=== PATIENT | female | born 1980 | race Caucasian/White ===

== ENCOUNTER 2016-03-30 11:55 | Emergency (ER) | payer BC ==
[~2016-03-30] VITALS: Ht 165.1 cm; Wt 62.9 kg
[~2016-03-30 11:55] MED LIST: SERT100T PO
[2016-03-30 12:00] VITALS: TEMP 36.8; Ht 165.1 cm; Wt 62.9 kg
[2016-03-30] MEDS ORDERED: [UNRECOGNIZED DRUG - CODE] PO (12:18)
[2016-03-30] MEDS ORDERED: IBUPROFEN 600 MG TAB PO STA (13:05)
--- NOTE | 2016-03-30 14:40 | DIAGNOSTIC IMAGING REPORT ---
NECK ULTRASOUND HISTORY: left sided facial/neck swelling COMPARISON: Cervical spine CT 02/14/2015. FINDINGS: Along the inferior aspect of the left parotid gland there are 2 intraparotid lymph nodes with the largest measuring 8 x 5 x 4 mm. There is also a single intraparotid lymph node on the right measuring 8 x 5 x 3 mm. No additional fluid collections or masses identified. IMPRESSION: Nearly symmetric small bilateral intraparotid lymph nodes. No additional fluid collections or masses identified within the neck. Electronically signed by: Jv Gilliland M.D. 03/30/2016 2:38 PM Dictated Date/Time: 03/30/2016 2:35 PM
[2016-03-30] MEDS ORDERED: AMOX875T PO (14:46)
--- NOTE | 2016-03-30 14:47 | EMERGENCY ROOM VISIT NOTE ---
History First contact with patient: 12:16 Chief Complaint: ILLNESS Stated Complaint: BLANDS BELOW LT EAR SWELLING, FEELING TIRED/SICK History of Present Illness The patient is a 36 year old female who presents to the Emergency Room with complaints of swelling in the glands of the left side of her face. The patient states that this began a few days ago. She states that she has some pain in the left side of her face in front of her ear. She states it feels slightly swollen and it is painful to touch. She rates her discomfort a 3/10. The patient denies any recent illness, fevers or chills. She denies sore throat, earache, difficulty swallowing or cough. She reports she has had problems with swollen lymph nodes as a child. Review of Systems A complete 10-point Review of Systems was discussed with the patient, with pertinent positives and negatives listed in the History of Present Illness. All remaining Review of Systems questions can be considered negative unless otherwise specified. Past Medical/Surgical History Medical Problems: (1) Acute back pain (2) Acute bronchitis (3) Acute bronchitis (4) ANXIETY STATE NOS (5) Back contusion (6) CERVICALGIA (7) Chest pain (8) Chest pain (9) Chronic low back pain (10) DEPRESSIVE DISORDER NEC (11) Spasm of back muscles (12) TOBACCO USE DISORDER (13) Vaginal hysterectomy Surgical Problems: (1) Cholecystectomy (2) History of - hysterectomy (3) Postoperative state (4) S/P cervical spinal fusion (5) S/P cervical spinal fusion Family History Cancer Diabetes mellitus Gallbladder disease Social History Smoking Status: Current Every Day Smoker Alcohol Use: occasionally Drug Use: none Marital Status: Housing Status: lives with family Occupation Status: employed Current/Historical Medications Scheduled Amoxicillin & Pot Clavulanate (Augmentin 875-125 mg), 1 TAB PO BID Atomoxetine HCl (Strattera), 100 MG PO QAM Sertraline Hcl (Zoloft), 1.5 TAB PO DAILY Allergies Coded Allergies: No Known Allergies (Verified , 03/30/16) Physical Exam Vital Signs Date Time Temp Pulse Resp B/P Pulse Ox O2 Delivery O2 Flow Rate FiO2 03/30/16 14:53 78 16 123/77 98 03/30/16 14:00 88 20 136/78 96 03/30/16 12:00 36.8 97 18 128/86 97 Room Air Physical Exam VITALS: Vitals are noted on the nurse's note and reviewed by myself. Vital signs stable. GENERAL: This is a 36-year-old female, in no acute distress, nondiaphoretic, well-developed well-nourished. SKIN: Capillary reflex less than 2 seconds. HEENT: Normocephalic. PERRLA. EOMI. Nares patent. Mucous membranes moist. Questionable minimal left-sided facial swelling. NECK: Supple, no nuchal rigidity. No cervical lymphadenopathy. HEART: Regular rate and rhythm without murmurs gallops or rubs. LUNGS: Clear to auscultation bilaterally without wheezes, rales or rhonchi. NEURO: Patient was alert and oriented to person place and time. Medical Decision & Procedures ER Provider Diagnostic Interpretation: NECK ULTRASOUND HISTORY: left sided facial/neck swelling COMPARISON: Cervical spine CT 02/14/2015. FINDINGS: Along the inferior aspect of the left parotid gland there are 2 intraparotid lymph nodes with the largest measuring 8 x 5 x 4 mm. There is also a single intraparotid lymph node on the right measuring 8 x 5 x 3 mm. No additional fluid collections or masses identified. IMPRESSION: Nearly symmetric small bilateral intraparotid lymph nodes. No additional fluid collections or masses identified within the neck. Medications Administered Medications (Trade) Dose Ordered Sig/Wendy Route Start Time Stop Time Status Last Admin Dose Admin Ibuprofen (Motrin Tab) 600 mg NOW STAT PO 03/30/16 13:05 03/30/16 13:06 DC 03/30/16 13:12 600 MG Medical Decision Differential diagnosis includes lymphadenopathy, parotitis, abscess, among others. The patient was evaluated as above. Imaging studies were performed and read by radiology as above. The patient is a 36-year-old female who presents today complaining of left sided neck swelling. Ultrasound did not show any significant lymphadenopathy, abscess, or any other infectious findings. The patient will be placed on Augmentin to cover for any bacterial cause of her pain and swelling. She will follow up with her primary care provider as needed. She verbalized understanding of my assessment and treatment plan. Based on the patient's presentation, lab results, and imaging studies, I feel the patient is stable for outpatient treatment. Discharge instructions were reviewed with the patient. The patient verbalized understanding of my assessment and treatment plan and was discharged home in good condition. Impression Primary Impression: Lymphadenopathy of head and neck Departure Information Dispostion Home / Self-Care Condition GOOD Prescriptions Amoxicillin & Pot Clavulanate (Augmentin 875-125 mg) 1 Tab Tab 1 TAB PO BID for 7 Days, #14 TAB Prov: Leia Lunsford .JERALD 03/30/16 Referrals Leo Fields PA-C (PCP) Patient Instructions My [facility] Additional Instructions You were prescribed Augmentin to be taken twice daily as prescribed. This is an antibiotic. All antibiotics have the potential to cause diarrhea. Stop this medication and contact a medical provider if you were to develop any significant adverse side effects including: wheezing, shortness of breath, passing out, vomiting, or a diffuse rash. Always take antibiotics as directed and COMPLETE the ENTIRE course regardless of the improvement of your symptoms. For pain control, you can use the following [id number] medicines (if >12 yo): - Regular strength (325mg/tab) Tylenol (acetaminophen) 2 tabs every 4-6 hours as needed. Do not exceed 12 tablets in a 24 hour period. Avoid taking more than 4 grams (4000 mg) of Tylenol per day. This includes any other sources of acetaminophen you may take on a regular basis. - Regular strength (200 mg/tab) Advil (ibuprofen) 1-2 tabs every 4-6 hours as needed. Do not exceed a dose of 3200 mg per day. Follow-up with your primary care provider within one week. Return to the emergency department with any worsening symptoms or new/ concerning symptoms.
[2016-03-30 14:53] VITALS: BP 123/77; PULSE 78; O2SAT 98
== END 2016-03-30 14:54 | disposition home or self-care (01) ==
LOC: C.EDB 11:58 → C.EDD 14:54
DX: R59.1 Generalized enlarged lymph nodes (principal); F32.9 Major depressive disorder, single episode, unspecified; F17.200 Nicotine dependence, unspecified, uncomplicated; Z90.49 Acquired absence of other specified parts of digestive tract; Z90.710 Acquired absence of both cervix and uterus; Z79.899 Other long term (current) drug therapy; Z80.9 Family history of malignant neoplasm, unspecified; Z83.3 Family history of diabetes mellitus

== ENCOUNTER 2016-04-10 23:48 | Emergency (ER) | payer BC ==
[~2016-04-10] VITALS: Ht 165.1 cm; Wt 63.1 kg
[~2016-04-10 23:48] MED LIST changes: +[UNRECOGNIZED DRUG - CODE] PO
[2016-04-10 23:53] VITALS: TEMP 36.9; Ht 165.1 cm; Wt 63.1 kg
[2016-04-11] MEDS ORDERED: ONDANSETRON INJ 2 MG/ML 2 ML VIAL IV STA (00:14)
[2016-04-11] MEDS ORDERED: MoRPHine SULFATE 4 MG/ML 1 ML CARP\\VIAL IV STA ×2 (00:14→01:09)
[2016-04-11] MEDS ORDERED: SODIUM CHLORIDE 0.9% 1000ML 1,000 ML IV STA (00:14)
[2016-04-11] MEDS ORDERED: KETOROLAC TROMETHAMINE 30 MG/ML VIAL IV STA (00:14)
--- NOTE | 2016-04-11 00:26 | EMERGENCY ROOM VISIT NOTE ---
History Report prepared by Farhat: Manish Morocho Under the Supervision of: Dr. Silvia Wallace D.O. First contact with patient: 00:01 Chief Complaint: FLANK PAIN Stated Complaint: LEFT SIDED ABDOMINAL PAIN History of Present Illness The patient is a 36 year old female who presents to the Emergency Room with complaints of constant sharp left flank pain starting suddenly around 2100. The patient additionally complains of nausea. The patient states that she has never had a kidney or stone or a UTI. She states that she has a history of fecal incontinence, urinary incontinence, and she has been impacted which she is seeing a doctor for. She sates that she was having UTI symptoms yesterday. The patient states that she takes Zoloft for anxiety. She additionally has ADHD and acid reflux. The patient denies any family history of kidney stones. She states that she has had a vaginal hysterectomy and a cholecystectomy and neck surgery to fuse some vertebrae. Source of History: patient Onset: 2100 Position: other (flank) Quality: sharp Timing: constant Associated Symptoms: + nausea Review of Systems See HPI for pertinent positives & negatives. A total of 10 systems reviewed and were otherwise negative. Past Medical & Surgical Medical Problems: (1) Acute back pain (2) Acute bronchitis (3) Acute bronchitis (4) ANXIETY STATE NOS (5) Back contusion (6) CERVICALGIA (7) Chest pain (8) Chest pain (9) Chronic low back pain (10) DEPRESSIVE DISORDER NEC (11) Spasm of back muscles (12) TOBACCO USE DISORDER (13) Vaginal hysterectomy Surgical Problems: (1) Cholecystectomy (2) History of - hysterectomy (3) Postoperative state (4) S/P cervical spinal fusion (5) S/P cervical spinal fusion Family History Cancer Diabetes mellitus Gallbladder disease Social History Smoking Status: Never Smoker Alcohol Use: occasionally Drug Use: none Marital Status: Housing Status: lives with family Occupation Status: employed Current/Historical Medications Scheduled Atomoxetine HCl (Strattera), 100 MG PO QAM Omeprazole (Prilosec), 40 MG PO DAILY Sertraline (Zoloft), 100 MG PO DAILY Sulfamethoxazole-Trimethoprim (Bactrim Ds 800MG/160MG), 1 TAB PO BID Scheduled PRN Clonazepam (Klonopin), 0.5 MG PO DAILY PRN for Anxiety Allergies Coded Allergies: No Known Allergies (Verified , 04/11/16) Physical Exam Vital Signs Date Time Temp Pulse Resp B/P Pulse Ox O2 Delivery O2 Flow Rate FiO2 04/11/16 03:00 68 16 108/70 99 Room Air 04/11/16 02:07 86 16 111/72 98 Room Air 04/10/16 23:53 36.9 126 20 137/95 98 Room Air Physical Exam General: Crying in pain. HEENT: Head - normocephalic and atraumatic Pupils are equal, round, and reactive to light. Extraocular eye muscles are intact, and sclera are anicteric. Nose - moist nasal mucosa without discharge. Mouth - moist buccal mucosa. Oropharynx is nonerythematous and there is no tonsillar exudate or edema noted. Neck: Supple; no JVD, nuchal rigidity, cervical lymphadenopathy. Heart: Tachycardic rate and normal rhythm. There is a normal S1 and S2 with no murmurs, clicks, or gallops appreciated. Lungs: Clear to auscultation bilaterally with no wheezes, rales, or rhonchi. Abdomen: Diffuse abdominal pain. Guarding diffusely. Mostly concentrated in the epigastrium and left flank. Soft, nondistended, with hypoactive sounds. There are no palpable pulsatile masses or hepatosplenomegaly. There is no guarding, rigidity, or rebound noted. Extremities: No evidence of cyanosis, clubbing, or edema. There are easily palpable peripheral pulses. Skin: warm and dry with good turgor and no rashes. Medical Decision & Procedures ER Provider Diagnostic Interpretation: X-ray results as stated below per interpretation by me. Other radiology results as stated below per my review and the radiologist's interpretation: CT ABDOMEN & PELVIS: Mild fullness of the left collecting system with left periureteral fat stranding. No obstructing calculus. Differential considerations include recently passed calculus versus infection. 4.3 cm left adnexal cyst with attenuation greater than simple fluid. Ultrasound could be used for further evaluation if symptoms localize to this region. Otherwise, recommend 6- 12 week follow-up ultrasound. Uterus is surgically absent. Gallbladder is surgically absent. Liver, pancreas, spleen, and adrenals are unremarkable on noncontrast exam. No free air. No free fluid. Apparent wall thickening of the descending colon is likely due to under distention. Appendix is normal. Radiologist: Jerry Maurice MD Obstruction Series: No free air. No signs of bowel obstruction. Normal bowel gas pattern Laboratory Results 04/11/16 00:27 Red Blood Count 3.75, Mean Corpuscular Volume 98.1, Mean Corpuscular Hemoglobin 34.4, Mean Corpuscular Hemoglobin Concent 35.1, Mean Platelet Volume 10.8, Neutrophils (%) (Auto) 73.3, Lymphocytes (%) (Auto) 18.8, Monocytes (%) (Auto) 7.2, Eosinophils (%) (Auto) 0.4, Basophils (%) (Auto) 0.2, Neutrophils # (Auto) 7.90, Lymphocytes # (Auto) 2.02, Monocytes # (Auto) 0.78, Eosinophils # (Auto) 0.04, Basophils # (Auto) 0.02 04/11/16 00:27 Test 04/11/16 00:27 White Blood Count 10.77 K/uL (4.8-10.8) Red Blood Count 3.75 M/uL (4.2-5.4) Hemoglobin 12.9 g/dL (12.0-16.0) Hematocrit 36.8 % (37-47) Mean Corpuscular Volume 98.1 fL (80-100) Mean Corpuscular Hemoglobin 34.4 pg (25-34) Mean Corpuscular Hemoglobin Concent 35.1 g/dl (32-36) Platelet Count 220 K/uL (130-400) Mean Platelet Volume 10.8 fL (7.4-10.4) Neutrophils (%) (Auto) 73.3 % Lymphocytes (%) (Auto) 18.8 % Monocytes (%) (Auto) 7.2 % Eosinophils (%) (Auto) 0.4 % Basophils (%) (Auto) 0.2 % Neutrophils # (Auto) 7.90 K/uL (1.4-6.5) Lymphocytes # (Auto) 2.02 K/uL (1.2-3.4) Monocytes # (Auto) 0.78 K/uL (0.11-0.59) Eosinophils # (Auto) 0.04 K/uL (0-0.5) Basophils # (Auto) 0.02 K/uL (0-0.2) RDW Standard Deviation 47.1 fL (36.4-46.3) RDW Coefficient of Variation 13.1 % (11.5-14.5) Immature Granulocyte % (Auto) 0.1 % Immature Granulocyte # (Auto) 0.01 K/uL (0.00-0.02) Urine Color YELLOW Urine Appearance CLOUDY (CLEAR) Urine pH 6.0 (4.5-7.5) Urine Specific [place] 1.006 (1.000-1.030) Urine Protein 1+ (NEG) Urine Glucose (UA) NEG (NEG) Urine Ketones NEG (NEG) Urine Occult Blood 3+ (NEG) Urine Nitrite NEG (NEG) Urine Bilirubin NEG (NEG) Urine Urobilinogen NEG (NEG) Urine Leukocyte Esterase LARGE (NEG) Urine WBC (Auto) >30 /hpf (0-5) Urine RBC (Auto) 10-30 /hpf (0-4) Urine Hyaline Casts (Auto) 1-5 /lpf (0-5) Urine Epithelial Cells (Auto) 5-10 /lpf (0-5) Urine Bacteria (Auto) NEG (NEG) Anion Gap 11.0 mmol/L (3-11) Est Creatinine Clear Calc Drug Dose 102.4 ml/min Estimated GFR () 129.2 Estimated GFR (Non- 111.5 BUN/Creatinine Ratio 18.8 (10-20) Calcium Level 8.2 mg/dl (8.5-10.1) Total Bilirubin 0.2 mg/dl (0.2-1) Direct Bilirubin < 0.1 mg/dl (0-0.2) Aspartate Amino Transf (AST/SGOT) 11 U/L (15-37) Alanine Aminotransferase (ALT/SGPT) 17 U/L (12-78) Alkaline Phosphatase 86 U/L (45-117) Total Protein 6.9 gm/dl (6.4-8.2) Albumin 3.4 gm/dl (3.4-5.0) Lipase 152 U/L (73-393) Laboratory results per my review. Medications Administered Medications (Trade) Dose Ordered Sig/Wendy Route Start Time Stop Time Status Last Admin Dose Admin Sodium Chloride (Nss 1000ml) 1,000 ml @ 250 mls/hr Q4H STAT IV 04/11/16 00:14 04/11/16 04:13 04/11/16 00:24 250 MLS/HR Ondansetron HCl (Zofran Inj) 4 mg NOW STAT IV 04/11/16 00:14 2/1/17 00:15 DC 04/11/16 00:25 4 MG Ketorolac Tromethamine (Toradol Inj) 30 mg NOW STAT IV 04/11/16 00:14 04/11/16 00:15 DC 04/11/16 00:25 30 MG Morphine Sulfate (MoRPHine SULFATE INJ) 4 mg NOW STAT IV 04/11/16 00:14 04/11/16 00:15 DC 04/11/16 00:25 4 MG Morphine Sulfate (MoRPHine SULFATE INJ) 4 mg NOW STAT IV 04/11/16 01:09 04/11/16 01:11 DC 04/11/16 01:14 4 MG Trimethoprim/ Sulfamethoxazole (Septra Ds 800/ 160MG Tab) 1 tab NOW STAT PO 04/11/16 02:38 04/11/16 02:39 DC 04/11/16 02:44 1 TAB Oxycodone/ Acetaminophen (Percocet 5/ 325MG Home Pack) 1 homepack UD ONCE PO 04/11/16 03:15 04/11/16 03:16 DC 04/11/16 03:18 1 HOMEPACK Procedure Morphine Sulfate X2, Toradol, Zofran, Sodium Chloride, Septa Ds 800/160mg ED Course 0001: Past medical records reviewed. The patient was evaluated in room B4. A complete history and physical exam was performed. An IV lock was initiated and labs are drawn as above. 0014: Morphine Sulfate 4mg IV, Toradol Inj 40mg IV, Zofran Inj 4mg IV, Sodium Chloride 1000 ml @ 250 mls/hr IV. 0109: The patient's returned from radiology and was continuing to complain of pain. 0110: I reevaluated the patient, and she states that she feels significantly better with medication, but the pain is starting to come back. She was given additional IV Morphine Sulfate Inj. she will go for CT scan of the abdomen/ pelvis. 0230: Upon reevaluation, is still slightly uncomfortable. I discussed findings and results with her. She verbalized agreement of the treatment plan. She was discharged home. 0238: Septa Ds 800/160mg 1 tab PO 0315: Percocet 5/325mg 1 Home Pack PO Medical Decision The patient is a 36 year old female who presents to the ED with flank pain. Differential diagnosis includes perforate small bowel, small bowel obstruction, cystitis, diverticulitis, pancreatitis, gastritis, and kidney stone. No leukocytosis, stable H&H, normal renal function and glucose, normal LFTs and lipase. UA shows cloudy urine, 1+ protein, 3+ blood, greater than 30 white blood cells, 10-30 red blood cells, large leukocyte esterase, negative bacteria and nitrate This is a 28-year-old female patient who presents to the emergency department with sudden onset of left flank pain. The patient describes having some urinary symptoms yesterday. On physical exam tonight, she has diffuse abdominal pain with palpation. Obstruction series showed no evidence of small bowel obstruction or free air. Urinalysis had significant blood and signs that were concerning for infection. The urine will be sent for culture. She went for CT scan of the abdomen/pelvis as described above. The patient may have recently passed a stone. Her clinical presentation was suggestive of ureteral colic. However, the patient had urinary symptoms yesterday and a questionably infected urine. We will start her on Bactrim until cultures are resulted. The patient was told to return to the emergency department if she developed worsening pain, fever, or vomiting. I explained to the patient that she has a 4.3 cm left adnexal cyst noted on CT scan. She will require ultrasound follow-up through her operator helper. Impression Primary Impression: Left flank pain Scribe Attestation The scribe's documentation has been prepared under my direction and personally reviewed by me in its entirety. I confirm that the note above accurately reflects all work, treatment, procedures, and medical decision making performed by me. Departure Information Dispostion Home / Self-Care Prescriptions Sulfamethoxazole-Trimethoprim (Bactrim Ds 800MG/160MG) 1 Tab Tab 1 TAB PO BID, #20 TAB Prov: Silvia Wallace D.O. 04/11/16 Referrals Leo Fields PA-C (PCP) Forms HOME CARE DOCUMENTATION FORM, IMPORTANT VISIT INFORMATION Patient Instructions ED Flank Pain Uncertain Cause, My [facility], UTI Additional Instructions Rest. Take bactrim - 1 tab. every 12 hours percocet - 1-2 tabs. every 6 hours Follow up with gynecology for further evaluation of cyst. Return to the ER if symptoms worsen - increased pain, vomiting or fever.
[2016-04-11 00:42] LABS: BASO % 0.2 %; BASO ABS # 0.02 K/uL (0-0.2); COMPLETE YES; EOS % 0.4 %; HEMATOCRIT 36.8 % (37-47); IG% 0.1 %; LYMPH % 18.8 %; LYMPH ABS # 2.02 K/uL (1.2-3.4); MEAN CELL VOLUME 98.1 fL (80-100); MEAN CORPUSCULAR HEMOGLOBIN 34.4 pg (25-34); MEAN CORPUSCULAR HGB CONC 35.1 g/dl (32-36); MEAN PLATELET VOLUME 10.8 fL (7.4-10.4); MONO % 7.2 %; NEUT % 73.3 %; PLATELET COUNT 220 K/uL (130-400); RED BLOOD COUNT 3.75 M/uL (4.2-5.4); WHITE BLOOD COUNT 10.77 K/uL (4.8-10.8)
[2016-04-11] MEDS ORDERED: SERT-234 PO (00:44)
[2016-04-11] MEDS ORDERED: CLON0.5T3 PO (00:45)
[2016-04-11 00:46] LABS: URINE APPEARANCE CLOUDY (CLEAR); URINE BILIRUBIN NEG (NEG); URINE COLOR YELLOW; URINE NITRITE NEG (NEG); URINE SPECIFIC GRAVITY 1.006 (1.000-1.030); UROBILINOGEN NEG (NEG)
[2016-04-11] MEDS ORDERED: PRLSR20 PO (00:46)
[2016-04-11 00:47] LABS: MANUAL MICROSCOPIC REQUIRED? NO; REVIEW REQ? NO
[2016-04-11 01:02] LABS: ALT/SGPT 17 U/L (12-78); BLOOD UREA NITROGEN 13 mg/dl (7-18); BUN/CREATININE RATIO 18.8 (10-20); CALCIUM 8.2 mg/dl (8.5-10.1); CARBON DIOXIDE 22 mmol/L (21-32); CHLORIDE 105 mmol/L (98-107); CREATININE 0.67 mg/dl (0.60-1.20); GLUCOSE 92 mg/dl (70-99); POTASSIUM 3.4 mmol/L (3.5-5.1); SODIUM 138 mmol/L (136-145)
[2016-04-11 01:05] LABS: ALKALINE PHOSPHATASE 86 U/L (45-117); AST/SGOT 11 U/L (15-37)
[2016-04-11] MEDS ORDERED: SULFAMETHOXAZOLE/TRIMETHOPRIM DS 800/160MG TAB PO STA (02:38)
[2016-04-11] MEDS ORDERED: SULF800T23 PO (02:42)
[2016-04-11 03:00] VITALS: BP 108/70; PULSE 68; O2SAT 99
[2016-04-11] MEDS ORDERED: PERCOCET HOME PACK PO ONE (03:15)
--- NOTE | 2016-04-11 06:10 | DIAGNOSTIC IMAGING REPORT ---
ABDOMEN 2VIEW W/PA CHEST RTN CLINICAL HISTORY: eval for free air or sob pain COMPARISON STUDY: 02/14/2016 FINDINGS: The soft tissues, psoas shadows, renal outlines and intestinal gas pattern appear normal. There is no evidence for bowel obstruction. There is no evidence for free intraperitoneal air. No abnormal abdominal calcifications are seen. A frontal view of the chest was performed and is unremarkable. IMPRESSION: Normal study. Electronically signed by: Francisco Bertrand M.D. 04/11/2016 6:09 AM Dictated Date/Time: 04/11/2016 6:08 AM
--- NOTE | 2016-04-11 06:36 | DIAGNOSTIC IMAGING REPORT ---
ABDOMEN AND PELVIS CT WITHOUT CONTRAST CT DOSE: 466.31 mGy.cm HISTORY: Flank pain eval for left sided stone TECHNIQUE: Multiaxial CT images of the abdomen and pelvis were performed without the use of intravenous and oral contrast according to the standard department stone protocol. COMPARISON STUDY: None. FINDINGS: Lung bases are clear. Lung bases again are clear. Prior cholecystectomy. Liver spleen and pancreas are unremarkable. Mild fullness left renal collecting system compared to the right. No evidence for asaf hydronephrosis. Slight fullness left ureter compared to the right. Several pelvic vascular calcifications. No well-defined obstructing calculus. Nonobstructive bowel pattern. Slightly hyperdense 4 cm left ovarian cyst. IMPRESSION: 1. No evidence for an obstructing urinary tract calculus. 2. Mild left hydroureteronephrosis most consistent statistically with a recently passed calculus. 3. 4 cm left ovarian cyst. 4. A 2 cm right ovarian cyst. 5. Nonobstructive bowel pattern. Electronically signed by: Francisco Bertrand M.D. 04/11/2016 6:35 AM Dictated Date/Time: 04/11/2016 6:29 AM
--- NOTE | 2016-04-13 14:57 | Pharmacy Progress Note ---
ED Pharmacist Culture FollowUp Date of Service: Apr 13, 2016. Patient was sent home with a prescription for Bactrim DS 1 tab PO BID x 10 days , which should cover the E coli growing from the patient's URINE culture. No action required.
== END 2016-04-11 03:20 | disposition home or self-care (01) ==
LOC: C.EDB 23:49
DX: R10.30 Lower abdominal pain, unspecified (principal); F32.9 Major depressive disorder, single episode, unspecified; F41.9 Anxiety disorder, unspecified; G89.29 Other chronic pain; F17.200 Nicotine dependence, unspecified, uncomplicated; Z79.899 Other long term (current) drug therapy; Z90.710 Acquired absence of both cervix and uterus; Z90.49 Acquired absence of other specified parts of digestive tract; Z98.1 Arthrodesis status; Z80.9 Family history of malignant neoplasm, unspecified; Z83.3 Family history of diabetes mellitus; Z83.79 Family history of other diseases of the digestive system

== ENCOUNTER 2016-04-26 12:24 | Inpatient (IN) | payer BC ==
[~2016-04-26] VITALS: Ht 165.1 cm; Wt 64.4 kg
[~2016-04-26 12:24] MED LIST changes: +CLON0.5T3 PO; +PRLSR20 PO; +SERT-234 PO; -SERT100T PO
[2016-04-26 12:27] VITALS: Ht 165.1 cm; Wt 64.4 kg
[2016-04-26] MEDS ORDERED: SODIUM CHLORIDE 0.9% 1000ML 1,000 ML IV STA (12:55)
[2016-04-26] MEDS ORDERED: ONDANSETRON INJ 2 MG/ML 2 ML VIAL IV STA (12:55)
[2016-04-26] MEDS ORDERED: MoRPHine SULFATE 4 MG/ML 1 ML CARP\\VIAL IV STA ×2 (12:55→15:07)
[2016-04-26 13:08] LABS: BASO % 0.2 %; BASO ABS # 0.02 K/uL (0-0.2); COMPLETE YES; EOS % 0.2 %; IG% 0.2 %; LYMPH ABS # 0.79 K/uL (1.2-3.4); MEAN CELL VOLUME 99.7 fL (80-100); MEAN CORPUSCULAR HEMOGLOBIN 35.2 pg (25-34); MEAN CORPUSCULAR HGB CONC 35.3 g/dl (32-36); MEAN PLATELET VOLUME 10.8 fL (7.4-10.4); NEUT % 85.4 %; PLATELET COUNT 211 K/uL (130-400); RED BLOOD COUNT 3.61 M/uL (4.2-5.4); WHITE BLOOD COUNT 11.33 K/uL (4.8-10.8)
[2016-04-26 13:23] LABS: URINE APPEARANCE CLEAR (CLEAR); URINE BILIRUBIN NEG (NEG); URINE COLOR YELLOW; URINE NITRITE POS (NEG); URINE PH 5.5 (4.5-7.5); URINE SPECIFIC GRAVITY 1.014 (1.000-1.030); UROBILINOGEN NEG (NEG); ZZUR CULT IF INDIC CLEAN CATCH YES
[2016-04-26 13:24] LABS: MANUAL MICROSCOPIC REQUIRED? NO; REVIEW REQ? NO
[2016-04-26 13:26] LABS: BUN/CREATININE RATIO 10.5 (10-20); CALCIUM 8.2 mg/dl (8.5-10.1); CREATININE 0.63 mg/dl (0.60-1.20); POTASSIUM 3.8 mmol/L (3.5-5.1)
[2016-04-26] MEDS ORDERED: CLONAZEPAM 0.5 MG TAB PO STA (13:59)
[2016-04-26] MEDS ORDERED: CEFTRIAXONE SOD INJ 1 GM ADDVIAL IV STA (14:20)
--- NOTE | 2016-04-26 14:50 | DIAGNOSTIC IMAGING REPORT ---
ULTRASOUND KIDNEYS AND BLADDER CLINICAL HISTORY: Left flank pain. COMPARISON STUDY: Abdominal CT dated 04/11/16. TECHNIQUE: Real-time, grayscale, and color flow sonography of the kidneys and bladder is performed. Images are reviewed in the transverse and longitudinal planes. FINDINGS: Kidneys: The kidneys are normal in size and echotexture. The right kidney measures 9.5 x 4.6 x 4.4 cm and the left kidney measures 11.1 x 6.2 x 5.7 cm. There is no hydronephrosis. No shadowing renal calculi are identified. There is no sonographic evidence of contour deforming renal mass lesion. No perinephric fluid is identified. Bladder: The bladder is normal in appearance. Bilateral ureteral jets were seen. Pelvis: A complex and presumably hemorrhagic left ovarian cyst is again noted. This measures at least 6 cm. IMPRESSION: 1. The kidneys are normal in size and without hydronephrosis. 2. The bladder is normal in appearance. Both ureteral jets were seen. 3. A complex and presumably hemorrhagic left ovarian cyst is again noted. Electronically signed by: Luke Romeo M.D. 04/26/2016 2:49 PM Dictated Date/Time: 04/26/2016 2:46 PM
--- NOTE | 2016-04-26 15:40 | DIAGNOSTIC IMAGING REPORT ---
KUB CLINICAL HISTORY: Left sided abdominal pain. FINDINGS: 2 AP supine abdominal radiographs are correlated with abdominal CT dated 04/11/16. Cholecystectomy clips are identified. There is a nonobstructed abdominal bowel gas pattern noting moderate colonic fecal retention. There is no radiographic evidence of nephrolithiasis. Small phleboliths are seen in the pelvis. No evidence of intraperitoneal free air is seen on these supine views. A naval piercing is noted. The bony structures appear intact. The lung bases are clear as imaged. IMPRESSION: Nonobstructed abdominal bowel gas pattern noting moderate colonic fecal retention. Electronically signed by: Luke Romeo M.D. 04/26/2016 3:39 PM Dictated Date/Time: 04/26/2016 3:38 PM
[2016-04-26] MEDS ORDERED: TRAMADOL HCL 50 MG TAB PO PRN (16:30)
[2016-04-26] MEDS ORDERED: MAGNESIUM HYDROXIDE SUSP 30 ML UDC PO PRN (16:30)
[2016-04-26] MEDS ORDERED: MoRPHine SULFATE 4 MG/ML 1 ML CARP\\VIAL IV PRN (16:30)
[2016-04-26] MEDS ORDERED: ACETAMINOPHEN 325 MG TAB PO PRN (16:30)
[2016-04-26] MEDS ORDERED: NSS + 20MEQ KCL 1000ML 1,000 ML IV SCH (16:30)
[2016-04-26] MEDS ORDERED: ONDANSETRON INJ 2 MG/ML 2 ML VIAL IV PRN ×2 (16:30→17:45)
[2016-04-26] MEDS ORDERED: DOCUSATE SODIUM/SENNA 50/8.6MG TAB PO ONE (16:30)
[2016-04-26] MEDS ORDERED: CLONAZEPAM 0.5 MG TAB PO PRN (16:30)
[2016-04-26] MEDS ORDERED: SODIUM CHLORIDE 0.9% 1000ML 1,000 ML IV SCH (17:37)
[2016-04-26] MEDS ORDERED: NALOXONE HCL 0.4 MG/1 ML VIAL/CARP IV PRN (17:45)
[2016-04-26] MEDS ORDERED: PANTOprazole INJ 40 MG in SYRINGE 0 ML IV ONE (18:00)
--- NOTE | 2016-04-26 18:16 | HISTORY & PHYSICAL EXAMINATION ---
DATE OF ADMISSION: 04/26/2016 ADMITTING DIAGNOSES: 1. Hemorrhagic left ovarian cyst. 2. Intractable pelvic pain. ADMISSION HISTORY: The patient is a 36-year-old 2, para 2 status post vaginal hysterectomy in 2009, who is admitted from the Emergency Room for a hemorrhagic left ovarian cyst with intractable pain. The patient has been having intermittent pelvic pain for the last 2 weeks. She was seen in the Emergency Room 2 weeks ago and had a CAT scan which showed a 4 cm adnexal process. She was discharged home on pain medications and returns today with again acute pain. Some question of CVA tenderness and there was a question of pyelonephritis. Renal ultrasound was unremarkable, but a 6 cm hemorrhagic ovarian cyst was noted on renal ultrasound. The patient is not complaining of any nausea, vomiting, but the pain has made it impossible for her to sleep. The patient had a hysterectomy 5 years ago for supposed endometriosis. She is not complaining of any fever, chills, malaise, night sweats or unexplained weight loss. The patient has a history of some type of gastrointestinal disorder with chronic diarrhea. She is followed by the doctors at [facility] for this but etiology to this is undetermined. PAST MEDICAL HISTORY: OB: x2. 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 ADMISSION PHYSICAL EXAMINATION: GENERAL: Shows a female, uncomfortable but in no acute distress. VITAL SIGNS: Show blood pressure 134/81 and pulse of 102. HEENT EXAMINATION: Unremarkable. NECK: Supple. LUNGS: Clear. HEART: With a regular rhythm and rate. ABDOMEN: Diffusely nontender with no guarding, no rebound. PELVIC: Shows normal external genitalia. Vaginal vault is pink and rugated. The cuff is intact. On bimanual examination, patient complains of diffuse abdominal tenderness. Suboptimal examination because of patient discomfort. EXTREMITIES: Shows no deep calf tenderness. NEUROLOGIC: Grossly intact. ADMISSION LABORATORY VALUES: Show an H\T\H of 12.7 and 36.0, white count of 11,000. IMPRESSION: A 36-year-old G2, P2 with intractable pelvic pain, hemorrhagic ovarian cyst. PLAN: The patient is complaining of diffuse abdominal pain and pain control is difficult. A renal ultrasound shows a 6 cm complex ovarian cyst consistent with a hemorrhagic cyst. At this point, we are going to admit the patient for pain control and make her n.p.o. We will reevaluate her in approximately 12 hours. The need for possible surgical evaluation and removal of cyst and/or ovary has been discussed. The patient agrees with this plan.
--- NOTE | 2016-04-26 19:09 | DIAGNOSTIC IMAGING REPORT ---
PELVIC ULTRASOUND, TRANSABDOMINAL AND TRANSVAGINAL HISTORY: Pain pain and cyst COMPARISON: None. FINDINGS: Uterus: Partial hysterectomy. No significant residual. Endometrial stripe: None Right ovary: 2.7 cm. Normal vascular flow. 1.5 cm cyst. Left ovary: Large cyst measuring 7 cm. Normal vascular flow Miscellaneous:No pelvic free fluid. IMPRESSION: Large left ovarian cyst. Small right ovarian cyst. Otherwise negative study status post hysterectomy Electronically signed by: Francisco Bertrand M.D. 04/26/2016 7:08 PM Dictated Date/Time: 04/26/2016 7:02 PM
[2016-04-26 19:10] VITALS: BP 128/83; PULSE 107; TEMP 37.2
--- NOTE | 2016-04-26 19:22 | Progress Note ---
Progress Note delayed entry date of service 04/26/16 patient seen with JEAN Linares at bedside resting in bed, states pain is somewhat relieved with PRN Morphine, worse with movement denies chest pain, dyspnea, palpitations no other symptoms VS noted General- adult Head- atraumatic Eyes- anicteric ENT- oropharynx clear Neck- supple, no JVD, no adenopathy Lungs- clear to auscultation b/l Heart- regular rhythm; no murmur, no gallop, no rub appreciated Abdomen- normal bowel sounds,non distended, soft, (+) exquisite tenderness on the LLQ region, (+) Left CVA tenderness Extremities- no pretibial edema, no calf tenderness; peripheral pulses intact Neuro- alert, oriented x 3; no gross deficits Skin- warm & dry Labs and Imaging reviewed a/p> LLQ PAIN POSSIBLY FROM OVARIAN CYST, UTI - admission orders placed - Ceftriaxone IV urine culture pending PRN pain medications, IV fluids - discussed with Dr. Reese upon his evaluation, as per ER staff, he requested transfer of patient to Customer Experience Retail Clerk service Neil Verma MD
[2016-04-26] MEDS: MoRPHine SULFATE 1 MG/ML 50 ML PCA CASS IV PRN ×2 (20:19→23:15)
[2016-04-26] MEDS: LACTATED RINGER'S 1000ML 1,000 ML IV SCH (20:19)
--- NOTE | 2016-04-26 21:53 | EMERGENCY ROOM VISIT NOTE ---
History First contact with patient: 12:30 Chief Complaint: ABDOMINAL PAIN Stated Complaint: ABD Nursing Triage Summary: patient to ED via ALS from home for flank/abdominal pain, states "I was here two weeks ago and was told maybe I had a cyst, and a stone, and some fecal impaction. Yesterday I was having pain again so I went to urgent care and they gave me a shot of toradol which helped a little. Today the pain got so bad I couldn't go to work. Its severe pain in my right side, belly and back." History of Present Illness The patient is a 36 year old female who presents to the Emergency Room with complaints of left-sided abdominal pain for the past 2 weeks. The patient states that she was initially seen here and had a CT scan and lab testing which showed a recently passed kidney stone. She was prescribed antibiotics and took one week worth of antibiotics. She states that her pain has not improved. She saw urgent care yesterday for her symptoms and states that they gave her a shot of an anti-inflammatory and sent her home. She states that her symptoms had initially improved somewhat, but came back more severe. The patient has a history of fecal urgency/incontinence and IBS. She denies any history of kidney stones or kidney infections. She reports some associated nausea, but denies vomiting. She denies fevers/chills, chest pain, shortness of breath or blood in her stools. She denies any abnormal vaginal bleeding or vaginal discharge. Review of Systems A complete 10-point Review of Systems was discussed with the patient, with pertinent positives and negatives listed in the History of Present Illness. All remaining Review of Systems questions can be considered negative unless otherwise specified. Past Medical/Surgical History Medical Problems: (1) Abdominal pain (2) Acute back pain (3) Acute bronchitis (4) Acute bronchitis (5) ANXIETY STATE NOS (6) Back contusion (7) CERVICALGIA (8) Chest pain (9) Chest pain (10) Chronic low back pain (11) DEPRESSIVE DISORDER NEC (12) Hemorrhagic cyst (13) Spasm of back muscles (14) TOBACCO USE DISORDER (15) Vaginal hysterectomy Surgical Problems: (1) Cholecystectomy (2) History of - hysterectomy (3) Postoperative state (4) S/P cervical spinal fusion (5) S/P cervical spinal fusion Family History Cancer Diabetes mellitus Gallbladder disease Social History Smoking Status: Never Smoker Alcohol Use: occasionally Drug Use: none Marital Status: Housing Status: lives with family Occupation Status: employed Current/Historical Medications Scheduled Atomoxetine HCl (Strattera), 100 MG PO QAM Omeprazole (Prilosec), 40 MG PO DAILY Sertraline (Zoloft), 100 MG PO DAILY Scheduled PRN Clonazepam (Klonopin), 0.5 MG PO DAILY PRN for Anxiety Allergies Coded Allergies: No Known Allergies (Verified , 04/26/16) Physical Exam Vital Signs Date Time Temp Pulse Resp B/P Pulse Ox O2 Delivery O2 Flow Rate FiO2 04/26/16 16:30 102 16 134/81 97 04/26/16 14:15 97 20 137/78 95 Room Air 04/26/16 12:39 96 04/26/16 12:33 96 Room Air 04/26/16 12:27 36.5 94 23 130/82 Room Air Pain Rating (0-10): 0 Physical Exam VITALS: Vitals are noted on the nurse's note and reviewed by myself. Vital signs stable. GENERAL: This is a 36-year-old female, in no acute distress, nondiaphoretic, well-developed well-nourished. SKIN: Capillary reflex less than 2 seconds. HEART: Regular rate and rhythm without murmurs gallops or rubs. LUNGS: Clear to auscultation bilaterally without wheezes, rales or rhonchi. ABDOMEN: Positive bowel sounds x 4. Moderate left-sided CVA tenderness. The patient has tenderness of the left lower quadrant. No guarding or rebound tenderness. NEURO: Patient was alert and oriented to person place and time. Medical Decision & Procedures ER Provider Diagnostic Interpretation: ULTRASOUND KIDNEYS AND BLADDER IMPRESSION: 1. The kidneys are normal in size and without hydronephrosis. 2. The bladder is normal in appearance. Both ureteral jets were seen. 3. A complex and presumably hemorrhagic left ovarian cyst is again noted. KUB FINDINGS: 2 AP supine abdominal radiographs are correlated with abdominal CT dated 04/11/16. Cholecystectomy clips are identified. There is a nonobstructed abdominal bowel gas pattern noting moderate colonic fecal retention. There is no radiographic evidence of nephrolithiasis. Small phleboliths are seen in the pelvis. No evidence of intraperitoneal free air is seen on these supine views. A naval piercing is noted. The bony structures appear intact. The lung bases are clear as imaged. IMPRESSION: Nonobstructed abdominal bowel gas pattern noting moderate colonic fecal retention. Laboratory Results 04/26/16 12:40 Red Blood Count 3.61, Mean Corpuscular Volume 99.7, Mean Corpuscular Hemoglobin 35.2, Mean Corpuscular Hemoglobin Concent 35.3, Mean Platelet Volume 10.8, Neutrophils (%) (Auto) 85.4, Lymphocytes (%) (Auto) 7.0, Monocytes (%) (Auto) 7.0, Eosinophils (%) (Auto) 0.2, Basophils (%) (Auto) 0.2, Neutrophils # (Auto) 9.69, Lymphocytes # (Auto) 0.79, Monocytes # (Auto) 0.79, Eosinophils # (Auto) 0.02, Basophils # (Auto) 0.02 04/26/16 12:40 Test 04/26/16 12:33 04/26/16 12:40 04/26/16 12:55 Urine Color YELLOW Urine Appearance CLEAR (CLEAR) Urine pH 5.5 (4.5-7.5) Urine Specific [place] 1.014 (1.000-1.030) Urine Protein NEG (NEG) Urine Glucose (UA) NEG (NEG) Urine Ketones NEG (NEG) Urine Occult Blood 3+ (NEG) Urine Nitrite POS (NEG) Urine Bilirubin NEG (NEG) Urine Urobilinogen NEG (NEG) Urine Leukocyte Esterase SMALL (NEG) Urine WBC (Auto) >30 /hpf (0-5) Urine RBC (Auto) 0-4 /hpf (0-4) Urine Hyaline Casts (Auto) 5-10 /lpf (0-5) Urine Epithelial Cells (Auto) 10-20 /lpf (0-5) Urine Bacteria (Auto) 4+ (NEG) White Blood Count 11.33 K/uL (4.8-10.8) Red Blood Count 3.61 M/uL (4.2-5.4) Hemoglobin 12.7 g/dL (12.0-16.0) Hematocrit 36.0 % (37-47) Mean Corpuscular Volume 99.7 fL (80-100) Mean Corpuscular Hemoglobin 35.2 pg (25-34) Mean Corpuscular Hemoglobin Concent 35.3 g/dl (32-36) Platelet Count 211 K/uL (130-400) Mean Platelet Volume 10.8 fL (7.4-10.4) Neutrophils (%) (Auto) 85.4 % Lymphocytes (%) (Auto) 7.0 % Monocytes (%) (Auto) 7.0 % Eosinophils (%) (Auto) 0.2 % Basophils (%) (Auto) 0.2 % Neutrophils # (Auto) 9.69 K/uL (1.4-6.5) Lymphocytes # (Auto) 0.79 K/uL (1.2-3.4) Monocytes # (Auto) 0.79 K/uL (0.11-0.59) Eosinophils # (Auto) 0.02 K/uL (0-0.5) Basophils # (Auto) 0.02 K/uL (0-0.2) RDW Standard Deviation 48.4 fL (36.4-46.3) RDW Coefficient of Variation 13.4 % (11.5-14.5) Immature Granulocyte % (Auto) 0.2 % Immature Granulocyte # (Auto) 0.02 K/uL (0.00-0.02) Anion Gap 10.0 mmol/L (3-11) Est Creatinine Clear Calc Drug Dose 108.9 ml/min Estimated GFR () 131.9 Estimated GFR (Non- 113.8 BUN/Creatinine Ratio 10.5 (10-20) Calcium Level 8.2 mg/dl (8.5-10.1) Total Bilirubin 0.6 mg/dl (0.2-1) Aspartate Amino Transf (AST/SGOT) 19 U/L (15-37) Alanine Aminotransferase (ALT/SGPT) 23 U/L (12-78) Alkaline Phosphatase 80 U/L (45-117) Total Protein 7.1 gm/dl (6.4-8.2) Albumin 3.5 gm/dl (3.4-5.0) Globulin 3.6 gm/dl (2.5-4.0) Albumin/Globulin Ratio 1.0 (0.9-2) Lipase 102 U/L (73-393) Urine Test NEG (NEG) Medications Administered Medications (Trade) Dose Ordered Sig/Wendy Route Start Time Stop Time Status Last Admin Dose Admin Sodium Chloride (Nss 1000ml) 1,000 ml @ 999 mls/hr Q1H1M STAT IV 04/26/16 12:55 04/26/16 13:55 DC 04/26/16 13:24 999 MLS/HR Morphine Sulfate (MoRPHine SULFATE INJ) 4 mg NOW STAT IV 04/26/16 12:55 04/26/16 12:57 DC 04/26/16 13:24 4 MG Ondansetron HCl (Zofran Inj) 4 mg NOW STAT IV 04/26/16 12:55 04/26/16 12:57 DC 04/26/16 13:24 4 MG Clonazepam (Klonopin Tab) 0.5 mg NOW STAT PO 04/26/16 13:59 04/26/16 14:00 DC 04/26/16 14:14 0.5 MG Ceftriaxone Sodium (Rocephin Inj) 1 gm NOW STAT IV 04/26/16 14:20 04/26/16 14:21 DC 04/26/16 15:14 1 GM Morphine Sulfate (MoRPHine SULFATE INJ) 4 mg NOW STAT IV 04/26/16 15:07 04/26/16 15:08 DC 04/26/16 15:13 4 MG Senna/Docusate Sodium 1 tab 1 tab NOW ONCE PO 04/26/16 16:30 04/26/16 17:31 DC 04/26/16 17:46 1 TAB Lactated Ringer's (Lr 1000ml) 1,000 ml @ 125 mls/hr Q8H IV 04/26/16 17:37 05/26/16 17:36 04/26/16 20:19 125 MLS/HR Medical Decision Differential diagnosis includes cystitis, pyelonephritis, ovarian cyst, ovarian torsion, ectopic , appendicitis, diverticulitis, among others. The patient was evaluated as above. Labs were drawn and IV access was obtained. Imaging studies were performed and read by radiology as above. The patient was medicated with a total of 8 mg morphine for pain. She was given 4 mg Zofran IV and 1 L normal saline solution. The patient was reassessed multiple times during their stay in the emergency department and remained in stable condition. The patient is a 36-year-old female who presents today complaining of persistent left-sided abdominal pain. Previous records were reviewed Labs revealed a mild leukocytosis. Urinalysis was suggestive of infection, with the presence of nitrites, 4+ bacteria, leukocyte esterase and white blood cells. Urine was negative. Renal ultrasound and KUB were performed and showed no evidence of stones. Previous records showed that the patient was seen here 2 weeks ago and was started on Bactrim at that time. She was prescribed a 10 day course of Bactrim, which should have improved the patient's urinary tract infection. Given the patient's worsening urinalysis, leukocytosis and continued pain, I did offer her admission and she agreed at this time. The patient's case was reviewed with Dr. Cox, ED attending physician, who agreed with my assessment and treatment plan. Case was discussed with the [facility] hospitalist, who agreed to evaluate the patient for admission. Impression Primary Impression: Urinary tract infection Additional Impressions: Failure of outpatient treatment Abdominal pain Departure Information Dispostion Still a Patient Condition FAIR Referrals Leo Fields PA-C (PCP) Forms Call Back Authorization, HOME CARE DOCUMENTATION FORM, IMPORTANT VISIT INFORMATION Patient Instructions [facility] Problem Qualifiers
[2016-04-26 23:45] VITALS: BP 115/77; PULSE 103; TEMP 37.1
[2016-04-27] VITALS (8 sets, daily range): BP systolic 104–136; BP diastolic 61–74; PULSE 92–115; TEMP 36.3–36.9; O2SAT 92–99
[2016-04-27] MEDS: MoRPHine SULFATE 1 MG/ML 50 ML PCA CASS IV PRN ×7 (03:03→23:03)
[2016-04-27] MEDS: LACTATED RINGER'S 1000ML 1,000 ML IV SCH (04:23)
[2016-04-27] MEDS ORDERED: CEFAZOLIN 2000 MG/60 ML D5W 60 ML IV SCH (06:00)
[2016-04-27 06:43] LABS: BASO % 0.1 %; BASO ABS # 0.01 K/uL (0-0.2); COMPLETE YES; EOS % 0.3 %; HEMATOCRIT 32.5 % (37-47); IG% 0.3 %; LYMPH % 13.4 %; LYMPH ABS # 1.02 K/uL (1.2-3.4); MEAN CELL VOLUME 96.4 fL (80-100); MEAN CORPUSCULAR HEMOGLOBIN 34.1 pg (25-34); MEAN CORPUSCULAR HGB CONC 35.4 g/dl (32-36); MEAN PLATELET VOLUME 9.8 fL (7.4-10.4); MONO % 9.5 %; NEUT % 76.4 %; PLATELET COUNT 173 K/uL (130-400); RED BLOOD COUNT 3.37 M/uL (4.2-5.4)
[2016-04-27 07:14] LABS: BUN/CREATININE RATIO 4.1 (10-20); CALCIUM 8.2 mg/dl (8.5-10.1); CREATININE 0.51 mg/dl (0.60-1.20); POTASSIUM 3.4 mmol/L (3.5-5.1)
[2016-04-27] MEDS ORDERED: ATOMOXETINE 25 MG CAP PO SCH (08:00)
[2016-04-27] MEDS ORDERED: SERTRALINE HCL 100 MG TAB PO SCH (08:00)
[2016-04-27] MEDS ORDERED: DOCUSATE SODIUM/SENNA 50/8.6MG TAB PO SCH (08:00)
[2016-04-27] MEDS ORDERED: CEFTRIAXONE SOD INJ 1 GM in DEXTROSE 5% ADD-VANTAGE 50ML 50 ML IV SCH (08:00)
[2016-04-27] MEDS ORDERED: LACTATED RINGER'S 1000ML 1,000 ML IV SCH (09:09)
[2016-04-27] MEDS ORDERED: ONDANSETRON INJ 2 MG/ML 2 ML VIAL IV PRN ×2 (10:30→13:30)
[2016-04-27] MEDS ORDERED: ATROPINE SULFATE 0.1 MG/ML 5ML SYR IV PRN (10:30)
[2016-04-27] MEDS ORDERED: EpHEDrine SULFATE INJ 50 MG/ML AMP IV PRN (10:30)
[2016-04-27] MEDS ORDERED: PHENYLEPHRINE 100MCG/ML 5ML SYR IV PRN (10:30)
[2016-04-27] MEDS ORDERED: PANTOprazole INJ 40 MG in SYRINGE 0 ML IV SCH (11:00)
[2016-04-27] MEDS ORDERED: GLYCOPYRROLATE INJ 0.2 MG/ML VIAL ONE (11:30)
[2016-04-27] MEDS ORDERED: DEXAMETHASONE SOD INJ 4 MG/ML VIAL ONE (11:30)
[2016-04-27] MEDS ORDERED: FENTANYL CITRATE INJ 50 MCG/1 ML 2 ML VIAL ONE (11:30)
[2016-04-27] MEDS ORDERED: PROPOFOL IV EMULSION 10 MG/ML 20 ML VIAL IV ONE ×2 (11:30→12:25)
[2016-04-27] MEDS ORDERED: LIDOCAINE HCL 2% 2 ML VIAL (20MG/ML) ONE (11:30)
[2016-04-27] MEDS ORDERED: ROCURONIUM BROMIDE 10 MG/ML 5 ML VIAL ONE (11:30)
[2016-04-27] MEDS ORDERED: NEOSTIGMINE METHYLSULFATE 5 MG/5 ML SYR ONE (11:30)
[2016-04-27] MEDS ORDERED: MIDAZOLAM HCL 1 MG/ML 2ML VIAL ONE (11:30)
[2016-04-27] MEDS ORDERED: EpHEDrine SULFATE INJ 50 MG/ML AMP ONE (11:30)
[2016-04-27] MEDS ORDERED: PHENYLEPHRINE HCL INJ 10 MG/ML VIAL ONE (11:30)
[2016-04-27] MEDS ORDERED: SUCCINYLCHOLINE CHLORIDE 20 MG/ML 10 ML VIAL IV ONE (11:30)
[2016-04-27] MEDS ORDERED: ONDANSETRON INJ 2 MG/ML 2 ML VIAL ONE (11:30)
--- NOTE | 2016-04-27 11:51 | History & Physical Bridge Note ---
H&P Re-Evaluation Bridge Note: I have examined the patient, reviewed the History & Physical and in the interval since the performance of the History & Physical I have noted the following changes of clinical significance: No changes noted
[2016-04-27] MEDS ORDERED: D5W AND LACTATED RINGERS 1,000 ML IV SCH (13:16)
--- NOTE | 2016-04-27 13:16 | [facility] Operative Report ---
Operative Report Operative Date Apr 27, 2016. Pre-Operative Diagnosis Intractable pelvic pain, hemorrhagic ovarian cyst Post-Operative Diagnosis left simple ovarian cyst, pelvic adhesions Procedure(s) Performed exploratory laparotomy, lysis of adhesions, LSO, right salpingectomy Surgeon Dr. Evelyne Vela Church Administrator Surgeon(s) None Estimated Blood Loss 20ml Findings 7 cm left ovarian cyst adherent to vaginal cuff posteriorly. normal left tube, normal right tube & ovary. Specimens A: Left ovary and fallopian tube B: Right fallopian tube Drains marrufo to straight drainage Anesthesia GET Disposition Recovery Room / PACU I attest to the content of the Intraoperative Record and any orders documented therein. Any exceptions are noted below.
[2016-04-27] MEDS ORDERED: MEPERIDINE HCL 75 MG/ML CARP IV PRN (13:30)
[2016-04-27] MEDS ORDERED: KETOROLAC TROMETHAMINE 30 MG/ML VIAL IV. PRN (13:30)
[2016-04-27] MEDS ORDERED: MEPERIDINE HCL 50 MG/ML CARP IV PRN (13:30)
[2016-04-27] MEDS ORDERED: IBUPROFEN 600 MG TAB PO PRN (13:30)
[2016-04-27] MEDS ORDERED: PROMETHAZINE HCL INJ 25 MG in SODIUM CHLORIDE 0.9% 50ML 50 ML IV PRN (13:30)
[2016-04-27] MEDS: HYDROmorphone INJ 2 MG/ML SYR/VIAL IV PRN ×4 (13:58→14:13)
--- NOTE | 2016-04-27 14:10 | OPERATIVE REPORT ---
DATE OF OPERATION: 04/27/2016 SURGEON: Evelyne Vela MD PREOPERATIVE DIAGNOSIS: Persistent 7 cm left ovarian cyst and intractable pain. POSTOPERATIVE DIAGNOSIS: Same. PROCEDURES: Exploratory laparotomy, lysis of adhesions, left salpingo-oophorectomy and right salpingectomy. ANESTHESIA: General endotracheal. BLOOD LOSS: 20 mL. HISTORY OF PRESENT ILLNESS: The patient is a 36-year-old 2, para 2-0-0-2 white female who is status post vaginal hysterectomy in 2009, was seen in the Emergency Room on the night of 04/26/2016 for intractable pain. She had been noted to have a 4 cm left ovarian cyst several weeks ago when she had a CT scan for similar right and left flank pain. Renal scan in the Emergency Room and ultrasound of the pelvis established that there was a 7 cm, what appeared to be a hemorrhagic cyst of the left ovary. The patient will be admitted overnight for pain control and because of the persistence of the cyst and the persistence of her pain, we will proceed with exploratory laparotomy, left salpingo-oophorectomy and right salpingectomy. The patient is agreeable to this plan and all questions were answered to her satisfaction. GROSS FINDINGS: The left ovary is enlarged to 7 cm and adherent to the vaginal cuff posteriorly. It was filled with clear fluid. The left fallopian tube was within normal limits. The right ovary and tube were also within normal limits. There were some filmy adhesions of the omentum to the right ovary as well as to the left ovary. PROCEDURE IN DETAIL: After the patient received adequate general endotracheal anesthesia, she was prepped and draped in usual sterile fashion. A low transverse incision was made with the scalpel and followed to the fascia with a second scalpel. The fascial incision was then extended with Sim scissors. The edges were grasped with Bao clamps and the underlying rectus muscles were bluntly and sharply dissected off the overlying fascia. The peritoneum was then entered sharply. The patient was placed in moderate Trendelenburg position. Bowel was packed out of the way. The left adnexa was identified and found to be adherent to the posterior cul-de-sac and vaginal cuff. This was dissected free with Metzenbaum scissors and the bleeding at the vaginal cuff site was controlled with the Bovie. Two Mirna clamps were placed across the ovarian ligament, taking care to be well away from the left ureter. The ovary and tube were removed. 0 Vicryl was used to secure the pedicle with a suture ligature as well as a tie. Hemostasis was noted to be excellent. Attention was then turned to the right fallopian tube and adhesions from the omentum were released prior to removing the tube with a Mirna clamp. The pedicle was suture ligated with a tie of 0 Vicryl, followed by suture ligature of the same. The abdomen was then irrigated and some additional bleeding at the vaginal cuff was secured again with the Bovie. The pedicle sites were then examined once more and found to have excellent hemostasis, the case was terminated. All the packs were removed and the rectus muscles were brought together on the midline with individual stitches of 0 Vicryl. The fascia was closed in a running fashion with 0 Vicryl after irrigating the adipose layer. The skin edges were reapproximated using a subcuticular stitch of 3-0 Vicryl. Urine was clear at the end of the case. The patient tolerated the procedure well. I attest to the content of the Intraoperative Record and any orders documented therein. Any exceptio ns are noted below.
--- NOTE | 2016-04-27 14:46 | Anesthesiology Progress Note ---
Anesthesia Post Op Note Date & Time Apr 27, 2016 at 14:47 Vital Signs Pain Intensity: 7 Vital Signs Past 12 Hours Date Time Temp Pulse Resp B/P Pulse Ox O2 Delivery O2 Flow Rate FiO2 04/27/16 14:15 100 20 110/69 98 Nasal Cannula 3 04/27/16 14:05 99 20 111/56 96 Nasal Cannula 3 04/27/16 13:55 100 20 107/74 100 Nasal Cannula 3 04/27/16 13:45 98 20 111/66 100 Mask 10 04/27/16 13:35 100 20 115/71 100 Mask 10 04/27/16 13:27 37.2 110 20 118/73 100 Mask 10 04/27/16 07:50 98 Room Air 04/27/16 07:50 36.3 107 16 106/70 98 Room Air Notes Mental Status: alert / awake / arousable, participated in evaluation Pt Amnestic to Procedure: Yes Nausea / Vomiting: adequately controlled Pain: adequately controlled Airway Patency, RR, SpO2: stable & adequate BP & HR: stable & adequate Hydration State: stable & adequate Anesthetic Complications: no major complications apparent
[2016-04-27] MEDS ORDERED: CLONAZEPAM 0.5 MG TAB PO PRN (15:15)
[2016-04-27] MEDS ORDERED: NURSING VERBAL MED ORDER ONE (15:30)
[2016-04-27] MEDS: ATOMOXETINE 25 MG CAP PO SCH (16:35)
[2016-04-27] MEDS: SERTRALINE HCL 100 MG TAB PO SCH (16:35)
[2016-04-27] MEDS: CIPROFLOXACIN 500 MG TAB PO SCH (20:19)
[2016-04-28 03:40] VITALS: BP 103/59; PULSE 87; TEMP 36.6; O2SAT 96
[2016-04-28] MEDS ORDERED: DiphenhydrAMINE HCL 50 MG/ML VIAL ONE (03:54)
[2016-04-28] MEDS ORDERED: DC PCA ONE (04:00)
[2016-04-28] MEDS ORDERED: DiphenhydrAMINE HCL 50 MG/ML VIAL IV ONE (04:00)
[2016-04-28] MEDS ORDERED: DiphenhydrAMINE INJ 25 MG in SYRINGE 0 ML IV SCH (04:00)
[2016-04-28] MEDS: OXYCODONE/ACETAMINOPHEN 5-325 TAB PO PRN ×2 (04:07→08:28)
[2016-04-28 07:30] VITALS: BP 102/68; PULSE 98; TEMP 36.4
[2016-04-28] MEDS ORDERED: PANTOprazole SOD 40 MG TAB PO SCH (08:00)
--- NOTE | 2016-04-28 08:02 | OB/GYN Progress Note ---
CURRICULUM DESIGNER Progress Note Date of Service Apr 28, 2016. Subjective conversation w/ patient, physical exam Ambulation: ambulating normally Voiding: no voiding problems Passing Gas: Yes Diet Tolerance: Regular Diet Notes: itchy all over , not sure why, no rash, has sensitive skin. yun under control with percocet. declines motrin because of her GI issues. Review of Systems Constitutional: No chills, No fatigue, No fever, No problem reported, No sweats , No weakness, No weight loss Abdomen: No GI bleeding, No constipation, No diarrhea, No nausea, No pain, No problem reported, No vomiting Objective Vital Signs Date Time Temp Pulse Resp B/P Pulse Ox O2 Delivery O2 Flow Rate FiO2 04/28/16 03:40 36.6 87 16 103/59 96 Room Air 04/27/16 23:20 Room Air 1.0 04/27/16 23:20 36.7 92 16 125/74 Room Air 04/27/16 23:20 36.7 92 18 125/74 96 Room Air 04/27/16 20:15 36.5 107 16 106/68 95 Room Air 04/27/16 17:40 110 16 111/61 92 Room Air 04/27/16 17:40 97 Nasal Cannula 1.0 04/27/16 16:40 104 16 136/63 97 Nasal Cannula 1.0 04/27/16 15:40 106 16 111/62 96 Room Air 04/27/16 15:10 95 Nasal Cannula 2.0 04/27/16 15:10 36.5 104 16 104/72 95 Nasal Cannula 2.0 04/27/16 14:50 99 Nasal Cannula 4.0 04/27/16 14:50 36.9 115 16 117/72 99 Nasal Cannula 4.0 04/27/16 14:15 100 20 110/69 98 Nasal Cannula 3 04/27/16 14:05 99 20 111/56 96 Nasal Cannula 3 04/27/16 13:55 100 20 107/74 100 Nasal Cannula 3 04/27/16 13:45 98 20 111/66 100 Mask 10 04/27/16 13:35 100 20 115/71 100 Mask 10 04/27/16 13:27 37.2 110 20 118/73 100 Mask 10 Physical Exam General Appearance: WELL-APPEARING, NO APPARENT DISTRESS Abdomen: normal bowel sounds, soft Incision Description: Clean, Dry & Intact Extremities: no calf tenderness some ecchymosis on left edge of incision Assessment and Plan Day Number: 1 Continue Routine Care: stable post-op course dischrage to [facility] with script for percocet. follow up in 6 weeks for post-op visit.
[2016-04-28] MEDS ORDERED: OXYC-57 PO (08:03)
--- NOTE | 2016-04-28 08:06 | Discharge Instructions ---
Discharge Instructions Admission Reason for Admission: ABD Discharge Discharge Diagnosis / Problem: removal of left ovary Discharge Goals Goal(s): Routine recovery after surgery Activity Recommendations Activity Limitations: per Instructions/Follow-up section . Instructions / Follow-Up Instructions / Follow-Up ACTIVITY RECOMMENDATIONS: Activity: * During the first week at home, your activity should be similar to that done at the hospital prior to discharge. Your primary activity is in-house walking interspersed with rest periods. Preparing lunch for yourself is acceptable. You may go up and down stairs. Try to stay up progressively longer periods of time to help regain your strength more quickly. * During the second week at home, activities should include some meal preparation, walking to strengthen abdominal muscles and riding in a car. You may drive a car and make brief shopping trips at the end of the second week at home. * Lifting should not exceed 15-20 pounds during the first month after surgery. * Sexual intercourse can usually be resumed about 6 weeks after surgery depending on findings at your post-operative examinations. Bathing: * Showers or baths are permissible. Sitting in four to six inches of hot water (sitz bath) is often comforting after vaginal surgery and is permitted at any time. A sitz bath at bedtime can also assist in a better night's sleep. SPECIAL CARE INSTRUCTIONS: The major discomforts related to surgery have now passed and progressive improvement will occur. The tight uncomfortable feeling in the abdominal, pelvic and back area will gradually fade away. Fatigue may take the longest to disappear; your energy level may take several weeks to return to normal. At times you may become frustrated or impatient over not feeling as well or doing as much as you'd like , but this is a normal reaction to surgery and will pass with time. Vaginal Discharge: * Odorous, blood-tinged or brownish discharge may be present for one to three weeks after surgery. * Pads should be used and not tampons. * Stitches may be passed vaginally. * Bleeding may be somewhat increased approximately two weeks after surgery, which is related to the stitches dissolving. * If bleeding becomes free flowing, notify our office at . Bowel Care: * Constipation after surgery is very common. Foods that promote bowel activity (bran, fruit, prune juice) should be included in your diet. * A capsule, DIALOSE-PLUS, can be purchased without a prescription and can be taken daily (one or two capsules) to assist in promoting bowel activity. * If you have had vaginal surgery involving your rectum, we will discuss this when discharged from the hospital. Catheter or "CYSTO-CATH": * Approximately 80% of "bladder repair" patients will require a catheter at home until the swelling recedes. * Some patients require days to weeks before adequate bladder emptying will resume. * In general, after each time you urinate, un-clamp the catheter again. Measure the amount in the bag. When this is consistently below 100cc, call the office to make an appointment to have the catheter removed. Temperature: * Any fever above 100.4 degrees F should be reported to our office at [phone]. FOLLOW-UP: Post-Operative Appointments: * Individual instructions will have been given about the timing of your first examination, but this is usually at the end of the second week home. * You will need to call the office at soon after discharge to make the appointment for your post-op check-up if it has not already been scheduled. * Additional information regarding activity, sexual intercourse and when to return to work will be given at this appointment. WE WISH YOU A SPEEDY RECOVERY! Current Hospital Diet Patient's current hospital diet: Regular Diet Discharge Diet Recommended Diet: Regular Diet Procedures Procedures Performed: Open Laparotomy, Left Salpingo-Oophorectomy; Right Salpingectomy Pending Studies Studies pending at discharge: yes List of pending studies: pathology report on ovary & tubes Medical Emergencies . Who to Call and When: Medical Emergencies: If at any time you feel your situation is an emergency, please call 911 immediately. . Non-Emergent Contact Non-Emergency issues call your: Animal Ride Manager . . "Provider Documentation" section prepared by Evelyne Vela. VTE Core Measure Inpt VTE Proph given/why not?: Treatment not indicated
[2016-04-28] MEDS: SERTRALINE HCL 100 MG TAB PO SCH (08:26)
[2016-04-28] MEDS: ATOMOXETINE 25 MG CAP PO SCH (08:26)
[2016-04-28] MEDS: CIPROFLOXACIN 500 MG TAB PO SCH (08:27)
[2016-04-28 08:47] VITALS: BP 102/68; PULSE 76; TEMP 36.7
[2016-04-28] MEDS ORDERED: CPR500 PO (08:48)
--- NOTE | 2016-04-28 09:08 | DISCHARGE SUMMARY ---
DATE OF DISCHARGE: 04/28/2016. PRINCIPAL DIAGNOSIS: Intractable pain and persistent 7 cm left ovarian cyst. PRINCIPAL PROCEDURE: Exploratory laparotomy, lysis of adhesions, left salpingo-oophorectomy and right salpingectomy. BRIEF HISTORY: The patient is a 36-year-old 2, para 2-0-0-2, white female who is status post vaginal hysterectomy in 2009. She was seen in the Emergency Room on the for intractable pain. She has had a 4 cm left ovarian cyst noted several weeks ago when she had a CT scan for left flank pain. Ultrasound and CT scan on the showed that this ovarian cyst was now 7 cm and appeared to be hemorrhagic. The patient had required IV narcotics to control her pain. She was admitted for pain control and then taken to the OR the following morning for lysis of adhesions and removal of the left ovary tube and right tube as well. The ovary had been densely adherent to the vaginal cuff, but appeared to be also a simple cyst, not a hemorrhagic cyst. The patient had a routine postop course, although the night prior to discharge she developed itching over her entire body. She states that she does have sensitive skin. There is no rash, no welts, no other signs of allergic reaction per se but states that she has sensitivities to many detergents and soaps. Pain was well controlled with oral narcotics at this point. She is voiding without difficulty, walking without difficulty and is passing gas. Labs on admission were hemoglobin 12.7, hematocrit 36.0, white count 11,033. First postop day hemoglobin 11.5, hematocrit 32.5 with a white count of 7,600. She was sent home with a prescription for Percocet 1-2 tablets p.o. q. 4 hours p.r.n. pain. She is also going to finish out her Cipro as she was noted to have a urinary tract infection based on urine sample was given on 04/26/2016. She will be seen in the office in 6 weeks for follow-up visit. She is to call for any increased redness, drainage or pain in her incision, burning with urination, flank pain, fever, chills, temperature of 101 degrees or higher or any other concerns.
== END 2016-04-28 09:50 | disposition home or self-care (01) | DRG 742 ==
LOC: ENRESERVDT → ENRESERVTM → EDBD 12:24 → C.EDC 12:25 → C.OBG 17:44 → EDBEDREQSVC 17:58 → EDBEDREQ 17:58 → EDBEDREQTM 17:58
PROVIDERS: ADMIT Obstetrics & Gynecology; ATTEND Obstetrics & Gynecology
PROC: 0UT70ZZ Resection of Bilateral Fallopian Tubes, Open Approach (ICD-10-PCS; principal; 2016-04-27 11:30)
PROC: 0UT10ZZ Resection of Left Ovary, Open Approach (ICD-10-PCS; principal; 2016-04-27 11:30)
DX: N83.202 Unspecified ovarian cyst, left side (principal); N39.0 Urinary tract infection, site not specified; F32.9 Major depressive disorder, single episode, unspecified; F17.200 Nicotine dependence, unspecified, uncomplicated

== ENCOUNTER → 2016-05-29 | Outpatient (CLI) | payer BC ==
[~2016-05-29] MED LIST changes: +CPR500 PO; +OXYC-57 PO
[2016-05-29 14:39] LABS: BASO % 0.3 %; BASO ABS # 0.02 K/uL (0-0.2); COMPLETE YES; EOS % 0.6 %; HEMATOCRIT 41.4 % (37-47); LYMPH % 21.1 %; LYMPH ABS # 1.52 K/uL (1.2-3.4); MEAN CELL VOLUME 98.3 fL (80-100); MEAN CORPUSCULAR HEMOGLOBIN 33.7 pg (25-34); MEAN CORPUSCULAR HGB CONC 34.3 g/dl (32-36); MEAN PLATELET VOLUME 11.5 fL (7.4-10.4); MONO % 9.1 %; NEUT % 68.9 %; PLATELET COUNT 209 K/uL (130-400); RED BLOOD COUNT 4.21 M/uL (4.2-5.4); WHITE BLOOD COUNT 7.22 K/uL (4.8-10.8)
[2016-05-29 14:49] LABS: CREATININE 0.79 mg/dl (0.60-1.20)
== END | disposition home or self-care (01) ==
LOC: C.LAB1850 13:17
PROVIDERS: ATTEND Obstetrics & Gynecology
DX: R10.9 Unspecified abdominal pain (principal)

== ENCOUNTER → 2016-06-04 | Outpatient (CLI) | payer BC ==
[~2016-06-04] MED LIST changes: +OPTIRAY 320 IV PRN
--- NOTE | 2016-06-04 15:03 | DIAGNOSTIC IMAGING REPORT ---
CT ABD/PELVIS IV AND ORAL CONT CLINICAL HISTORY: Left flank and pelvic pain COMPARISON STUDY: 04/11/2016 TECHNIQUE: Following the IV administration of 93 mL of Optiray-320, CT scan of the abdomen and pelvis was performed from the lung bases to the proximal femurs. Images are reviewed in the axial, sagittal, and coronal planes. IV contrast was administered without complication. CT DOSE: 342.44 mGycm FINDINGS: Lower chest: The heart is normal in size and configuration, without pericardial effusion. The lung bases and pleural spaces are clear. Liver: There is mild hepatic steatosis. There is a hypodensity adjacent the falciform ligament, likely representing focal fat. No suspicious hepatic masses are visualized. Gallbladder: Surgically absent Spleen: Normal in size and attenuation. Pancreas: Unremarkable. Adrenal glands: Unremarkable. Kidneys: There is symmetric renal cortical enhancement. The kidneys are normal in size without hydronephrosis. Bowel: There are no transition zones indicate bowel obstruction. The appendix appears normal. There is no acute diverticulitis. Peritoneum: There is no intraperitoneal free air or abdominal ascites. Vasculature: The abdominal aorta is normal in course and caliber. Adenopathy: None. Pelvic viscera: The uterus appears surgically absent. There is a bilobed right adnexal cyst measuring 38 mm, likely ovarian in origin. This likely are presenting a functional ovarian cyst. Skeletal structures: No destructive osseous lesions are seen. IMPRESSION: 1. No evidence of bowel obstruction. No evidence of free air 2. Bilobed 38 mm right adnexal cyst, likely representing a functional ovarian cyst. Interval resolution of the previous identified 4 cm left ovarian cyst. 3. No acute inflammatory changes. No evidence of acute appendicitis. No evidence of acute diverticulitis. Electronically signed by: Storm Erwin M.D. 06/04/2016 3:01 PM Dictated Date/Time: 06/04/2016 2:57 PM
== END | disposition home or self-care (01) ==
LOC: C.CTS 12:24
PROVIDERS: ATTEND Obstetrics & Gynecology
DX: R10.2 Pelvic and perineal pain (principal); R10.9 Unspecified abdominal pain; N85.8 Other specified noninflammatory disorders of uterus

== ENCOUNTER → 2016-06-07 | Outpatient (CLI) | payer BC ==
[~2016-06-07] MED LIST changes: -OPTIRAY 320 IV PRN
== END | disposition home or self-care (01) ==
LOC: C.PAPS 11:44
PROVIDERS: ATTEND Obstetrics & Gynecology
DX: N87.1 Moderate cervical dysplasia (principal)

== ENCOUNTER 2017-04-02 21:28 | Emergency (ER) | payer BC, OTHER ==
[~2017-04-02] VITALS: Ht 165.1 cm; Wt 66.1 kg
[2017-04-02 21:32] VITALS: TEMP 37; Ht 165.1 cm; Wt 66.1 kg
[2017-04-02] MEDS ORDERED: KETOROLAC TROMETHAMINE 30 MG/ML VIAL IV STA (21:41)
[2017-04-02] MEDS ORDERED: ONDANSETRON INJ 2 MG/ML 2 ML VIAL IV STA (21:41)
[2017-04-02] MEDS ORDERED: IBUP-103 PO (21:59)
[2017-04-02 22:32] LABS: BASO % 0.3 %; BASO ABS # 0.02 K/uL (0-0.2); EOS % 0.5 %; EOS ABS # 0.03 K/uL (0-0.5); HEMATOCRIT 38.9 % (37-47); HEMOGLOBIN 13.3 g/dL (12.0-16.0); LYMPH % 31.4 %; MEAN CELL VOLUME 96.3 fL (80-100); MEAN CORPUSCULAR HEMOGLOBIN 32.9 pg (25-34); MEAN CORPUSCULAR HGB CONC 34.2 g/dl (32-36); MEAN PLATELET VOLUME 11.3 fL (7.4-10.4); MONO % 9.1 %; MONO ABS # 0.58 K/uL (0.11-0.59); NEUT % 58.7 %; NEUT ABS # 3.74 K/uL (1.4-6.5); PLATELET COUNT 177 K/uL (130-400); RED CELL DISTRIBUTION WIDTH CV 12.1 % (11.5-14.5); WHITE BLOOD COUNT 6.37 K/uL (4.8-10.8)
[2017-04-02 22:52] LABS: ALBUMIN 3.7 gm/dl (3.4-5.0); ALT/SGPT 17 U/L (12-78); BLOOD UREA NITROGEN 15 mg/dl (7-18); CARBON DIOXIDE 24 mmol/L (21-32); CREATININE 0.76 mg/dl (0.60-1.20); GLUCOSE 88 mg/dl (70-99); LIPASE 151 U/L (73-393); POTASSIUM 3.5 mmol/L (3.5-5.1); SODIUM 137 mmol/L (136-145)
[2017-04-02 22:55] LABS: ALKALINE PHOSPHATASE 54 U/L (45-117); AST/SGOT 15 U/L (15-37); TOTAL PROTEIN 7.3 gm/dl (6.4-8.2)
--- NOTE | 2017-04-02 23:04 | DIAGNOSTIC IMAGING REPORT ---
RENAL ULTRASOUND CLINICAL HISTORY: Left flank pain. COMPARISON STUDY: Renal ultrasound April 26, [address] of the abdomen and pelvis June 04, 2016. TECHNIQUE: Sonography of the kidneys and the urinary bladder was performed. FINDINGS: The right kidney measures 10.1 x 5.7 x 5.1 cm and the left measures 10.4 x 6 x 4.3 cm. Renal echogenicity, size and cortical thickness are normal. There is no hydronephrosis. No calculi or masses are identified by sonography. Both ureteral jets were identified. IMPRESSION: Normal renal ultrasound. No hydronephrosis. Electronically signed by: Filemon Shabazz M.D. 04/02/2017 11:03 PM Dictated Date/Time: 04/02/2017 11:01 PM
[2017-04-02] MEDS ORDERED: MoRPHine SULFATE 4 MG/ML 1 ML CARP\\VIAL IV STA (23:14)
[2017-04-02] MEDS ORDERED: OPTIRAY 320 IV PRN (23:30)
[2017-04-03] MEDS ORDERED: ONDANSETRON INJ 2 MG/ML 2 ML VIAL IV STA (00:17)
--- NOTE | 2017-04-03 03:07 | EMERGENCY ROOM VISIT NOTE ---
History First contact with patient: 21:32 Chief Complaint: FLANK PAIN Stated Complaint: L SIDED FLANK PAIN,DIARRHEA History of Present Illness The patient is a 37 year old female who presents to the Emergency Room with complaints of left flank pain that radiates to her groin with urinary symptoms who his chronic diarrhea from IBS. Patient states for the past few days she's developed this left flank pain that radiates to her groin. Described as aching , ranging in severity 3 out of 10. Nothing makes it better or worse. Patient was treated for urinary infection last week with Keflex. This got a little bit better but the symptoms came back. She states she's had this ever since she had her surgery for her left oophorectomy last year by Dr. Vela. Patient states she has chronic diarrhea and this is unchanged. No blood or blackness. Patient denies chest pain, dyspnea, vomiting, vaginal itching or discharge, fever, chills, cold symptoms. Colonoscopy 2 years ago showed a benign polyp. Review of Systems See HPI for pertinent positives & negatives. A total of 10 systems reviewed and were otherwise negative. Past Medical/Surgical History Medical Problems: (1) Abdominal pain (2) Acute back pain (3) Acute bronchitis (4) Acute bronchitis (5) ANXIETY STATE NOS (6) Back contusion (7) CERVICALGIA (8) Chest pain (9) Chest pain (10) Chronic low back pain (11) DEPRESSIVE DISORDER NEC (12) Hemorrhagic cyst (13) Spasm of back muscles (14) TOBACCO USE DISORDER (15) Vaginal hysterectomy Surgical Problems: (1) Cholecystectomy (2) History of - hysterectomy (3) Postoperative state (4) S/P cervical spinal fusion (5) S/P cervical spinal fusion Family History Cancer Diabetes mellitus Gallbladder disease Social History Smoking Status: Current Every Day Smoker Alcohol Use: occasionally Drug Use: none Marital Status: Housing Status: lives with family Occupation Status: employed Current/Historical Medications Scheduled PRN Ibuprofen Tab (Advil), 400-600 MG PO Q6H PRN for Pain or Fever Physical Exam Vital Signs Date Time Temp Pulse Resp B/P (MAP) Pulse Ox O2 Delivery O2 Flow Rate FiO2 04/03/17 01:31 75 18 108/72 97 Room Air 04/02/17 23:26 80 16 133/77 97 Room Air 04/02/17 21:32 37.0 89 20 117/76 98 Room Air Physical Exam VITALS: Vitals are noted on the nurse's note and reviewed by myself. Vital signs stable. GENERAL: Pleasant female, in no acute distress, nondiaphoretic, well-developed well-nourished. SKIN: The skin was without rashes, erythema, edema, or bruising. There is no tenting of the skin. Capillary reflex less than 2 seconds. HEAD: Normocephalic atraumatic. EARS: External auditory canals clear, tympanic membranes pearly treviño without erythema or effusion bilaterally. EYES: Pupils equal round and reactive to light and accommodation. Conjunctivae without injection, sclerae without icterus. Extraocular movements intact. NOSE: Patent, turbinates without inflammation or discharge. MOUTH: Mucous membranes moist. Pharynx without erythema or exudate. Uvula midline. Airway patent. Tongue does not deviate. NECK: Supple without nuchal rigidity. No lymphadenopathy. No thyromegaly. Cervical spine is nontender. No JVD. HEART: Regular rate and rhythm without murmurs gallops or rubs. LUNGS: Clear to auscultation bilaterally without wheezes, rales or rhonchi. No dullness to percussion. No retractions or accessory muscle use. ABDOMEN: Positive bowel sounds x 4. Normal tympanic percussion. Soft, minimal left lower quadrant tenderness, without masses or organomegaly. Starr sign negative. No guarding or rebound tenderness. Left CVA tenderness MUSCULOSKELETAL: No muscle atrophy, erythema, or edema noted. NEURO: Patient was alert and oriented to person place and time. Normal sensation to light and sharp touch. No focal neurological deficits. Medical Decision & Procedures Laboratory Results 04/02/17 22:09 Red Blood Count 4.04, Mean Corpuscular Volume 96.3, Mean Corpuscular Hemoglobin 32.9, Mean Corpuscular Hemoglobin Concent 34.2, Mean Platelet Volume 11.3, Neutrophils (%) (Auto) 58.7, Lymphocytes (%) (Auto) 31.4, Monocytes (%) (Auto) 9.1, Eosinophils (%) (Auto) 0.5, Basophils (%) (Auto) 0.3, Neutrophils # (Auto) 3.74, Lymphocytes # (Auto) 2.00, Monocytes # (Auto) 0.58, Eosinophils # (Auto) 0.03, Basophils # (Auto) 0.02 04/02/17 22:09 Test 04/02/17 22:09 04/02/17 22:15 White Blood Count 6.37 K/uL (4.8-10.8) Red Blood Count 4.04 M/uL (4.2-5.4) Hemoglobin 13.3 g/dL (12.0-16.0) Hematocrit 38.9 % (37-47) Mean Corpuscular Volume 96.3 fL (80-100) Mean Corpuscular Hemoglobin 32.9 pg (25-34) Mean Corpuscular Hemoglobin Concent 34.2 g/dl (32-36) Platelet Count 177 K/uL (130-400) Mean Platelet Volume 11.3 fL (7.4-10.4) Neutrophils (%) (Auto) 58.7 % Lymphocytes (%) (Auto) 31.4 % Monocytes (%) (Auto) 9.1 % Eosinophils (%) (Auto) 0.5 % Basophils (%) (Auto) 0.3 % Neutrophils # (Auto) 3.74 K/uL (1.4-6.5) Lymphocytes # (Auto) 2.00 K/uL (1.2-3.4) Monocytes # (Auto) 0.58 K/uL (0.11-0.59) Eosinophils # (Auto) 0.03 K/uL (0-0.5) Basophils # (Auto) 0.02 K/uL (0-0.2) RDW Standard Deviation 43.0 fL (36.4-46.3) RDW Coefficient of Variation 12.1 % (11.5-14.5) Immature Granulocyte % (Auto) 0.0 % Immature Granulocyte # (Auto) 0.00 K/uL (0.00-0.02) Anion Gap 7.0 mmol/L (3-11) Est Creatinine Clear Calc Drug Dose 89.4 ml/min Estimated GFR () 114.5 Estimated GFR (Non- 98.8 BUN/Creatinine Ratio 19.8 (10-20) Calcium Level 9.0 mg/dl (8.5-10.1) Total Bilirubin 0.2 mg/dl (0.2-1) Direct Bilirubin < 0.1 mg/dl (0-0.2) Aspartate Amino Transf (AST/SGOT) 15 U/L (15-37) Alanine Aminotransferase (ALT/SGPT) 17 U/L (12-78) Alkaline Phosphatase 54 U/L (45-117) Total Protein 7.3 gm/dl (6.4-8.2) Albumin 3.7 gm/dl (3.4-5.0) Lipase 151 U/L (73-393) Urine Color YELLOW Urine Appearance CLEAR (CLEAR) Urine pH 5.0 (4.5-7.5) Urine Specific [place] 1.029 (1.000-1.030) Urine Protein NEG (NEG) Urine Glucose (UA) NEG (NEG) Urine Ketones NEG (NEG) Urine Occult Blood 2+ (NEG) Urine Nitrite NEG (NEG) Urine Bilirubin NEG (NEG) Urine Urobilinogen NEG (NEG) Urine Leukocyte Esterase NEG (NEG) Urine WBC (Auto) 1-5 /hpf (0-5) Urine RBC (Auto) 5-10 /hpf (0-4) Urine Hyaline Casts (Auto) 1-5 /lpf (0-5) Urine Epithelial Cells (Auto) >30 /lpf (0-5) Urine Bacteria (Auto) NEG (NEG) Medications Administered Medications (Trade) Dose Ordered Sig/Wendy Route Start Time Stop Time Status Last Admin Dose Admin Ketorolac Tromethamine (Toradol Inj) 30 mg NOW STAT IV 04/02/17 21:41 04/02/17 21:43 DC 04/02/17 22:16 30 MG Ondansetron HCl (Zofran Inj) 4 mg NOW STAT IV 04/02/17 21:41 04/02/17 21:43 DC 04/02/17 22:17 4 MG Morphine Sulfate (MoRPHine SULFATE INJ) 4 mg NOW STAT IV 04/02/17 23:14 04/02/17 23:15 DC 04/02/17 23:25 4 MG Ondansetron HCl (Zofran Inj) 4 mg NOW STAT IV 04/03/17 00:17 04/03/17 00:18 DC 04/03/17 00:24 4 MG ED Course Prior records/ancillary studies reviewed. Triage Nursing notes reviewed. The patient's history was concerning for flank / abdominal pain. Differential diagnosis: Etiologies such as appendicitis, diverticulitis, PUD, biliary pathology, UTI, pancreatitis, obstruction, mesenteric ischemia, aortic pathology, infections, inflammatory bowel disease, renal colic, as well as others were entertained. Physical examination findings: As above. ER treatment provided: Toradol, Zofran, IV fluids On reassessment the patient felt better. Diagnostics interpreted by me: The labs revealed no worrisome leukocytosis or electrolyte abnormality. Hematuria on urinalysis Imaging studies: CT scan showed no diverticulitis per stat radiology RENAL ULTRASOUND CLINICAL HISTORY: Left flank pain. COMPARISON STUDY: Renal ultrasound April 26, [address] of the abdomen and pelvis June 04, 2016. TECHNIQUE: Sonography of the kidneys and the urinary bladder was performed. FINDINGS: The right kidney measures 10.1 x 5.7 x 5.1 cm and the left measures 10.4 x 6 x 4.3 cm. Renal echogenicity, size and cortical thickness are normal. There is no hydronephrosis. No calculi or masses are identified by sonography. Both ureteral jets were identified. IMPRESSION: Normal renal ultrasound. No hydronephrosis. Electronically signed by: Filemon Shabazz M.D. Exam and history seem consistent with left lower quadrant abdominal pain with unclear etiology and hematuria. This may be due to her adhesions that she's had in the past. Patient did not have acute abdomen on exam. She is well- appearing. She is tolerating fluids. She is advised to follow-up with urology for her ongoing urinary symptoms and family care in a few days here in the ER sooner for fevers, vomiting, pain, worsening signs or symptoms or as needed. By the evaluation outlined above emergent etiologies such as appendicitis, diverticulitis, PUD, biliary pathology, UTI, pancreatitis, obstruction, mesenteric ischemia, aortic pathology, infections, inflammatory bowel disease, renal colic, as well as others were deemed relatively unlikely. The pt informed about the findings as listed above. All questions were answered and pleased with the treatment. Return instructions were outlined and the patient was discharged in stable condition. Referral: The patient was referred back to their primary care physician and/or urology for follow-up in 2 to 3 days for a recheck of the current condition. Case reviewed with my attending Medical Decision As above Medication Reconcilliation Current Medication List: was personally reviewed by me Blood Pressure Screening Patient's blood pressure: Normal blood pressure Impression Primary Impression: Left lower quadrant pain Additional Impression: Dysuria Departure Information Dispostion Home / Self-Care Condition GOOD Referrals Leo Fields PA-C (PCP) Patient Instructions My [facility] Additional Instructions Ibuprofen(Motrin, Advil) may be used for fever or pain. Use 600mg every six hours as needed. Take with food. Avoid using more than 2400mg in a 24 hour period. Do not use 2400mg per day for more than three consecutive days without physician direction. Prolonged inappropriate use can lead to stomach upset or ulcers. (AND/OR) Acetaminophen(Tylenol) may be used for fever or pain. Use 1000mg every six hours as needed. Avoid using more than 3000mg in a 24 hour period. Rest and drink plenty of fluids as tolerated. Continue current medications. Avoid strenuous activities and anything that worsens your pain. Resume normal activities once your symptoms resolve. Return to the ER immediately for worsening or persistent abdominal pain, vomiting, fevers, chest pains, difficulty breathing, worsening of your condition , or as needed. Follow up with your primary physician and urology in 2-3 days for a recheck of your current condition. Problem Qualifiers
[2017-04-03 03:21] VITALS: BP 122/71; PULSE 74; O2SAT 98
--- NOTE | 2017-04-03 06:53 | DIAGNOSTIC IMAGING REPORT ---
ABD/PELVIS IV AND ORAL CONT CT DOSE: 467.21 mGycm HISTORY: Abdominal pain llq pain TECHNIQUE: Multiaxial CT images of the abdomen and pelvis were performed following the use of intravenous and oral contrast. A dose lowering technique was utilized adhering to the principles of ALARA. COMPARISON STUDY: 06/04/2016 FINDINGS: Lung bases are clear. Liver spleen and pancreas are unremarkable. Cholecystectomy. Kidneys enhance appropriately. No evidence for hydronephrosis. Bowel pattern is nonobstructive. The appendix is normal. 2 cm right ovarian cyst. Bladder is midline. IMPRESSION: 2 cm right ovarian cyst. There are cholecystectomy. Otherwise negative study. The above report was generated using voice recognition software. It may contain grammatical, syntax or spelling errors. Electronically signed by: Francisco Bertrand M.D. 04/03/2017 6:52 AM Dictated Date/Time: 04/03/2017 6:49 AM
== END 2017-04-03 03:23 | disposition home or self-care (01) ==
LOC: C.EDB 21:30
DX: R10.32 Left lower quadrant pain (principal); R30.0 Dysuria; F41.9 Anxiety disorder, unspecified; F32.9 Major depressive disorder, single episode, unspecified; M54.5 Low back pain; G89.29 Other chronic pain; Z80.9 Family history of malignant neoplasm, unspecified; Z83.3 Family history of diabetes mellitus; Z83.79 Family history of other diseases of the digestive system; F17.210 Nicotine dependence, cigarettes, uncomplicated